=== PATIENT | male | born 1945 | race Caucasian/White ===

== ENCOUNTER → 2024-05-11 | Outpatient (CLI) | payer MEDICARE ==
[2024-05-11 11:13] LABS: ALT 20 U/L (10-49); AST 22 U/L (14-35); Chol/HDL Ratio 3.06 Ratio; LDL Cholesterol,Calculated 64.8 mg/dL (0.0-131.0)
== END | disposition home or self-care (01) ==
LOC: LABWHC1 08:22
PROVIDERS: ATTEND Internal Medicine Cardiovascular Disease
DX: E78.2 Mixed hyperlipidemia (principal)
CPT/HCPCS: 36415; 80061; 84450; 84460